=== PATIENT | male | born 1985 | race Caucasian/White ===

== ENCOUNTER 2024-03-18 17:17 | Emergency (ER) | payer OTHER, SELFPAY ==
[2024-03-18 17:30] VITALS: BP 158/116; BMI 27.3
--- NOTE | 2024-03-18 17:38 | ED.GENMED ---
History of Present Illness
General
Chief Complaint: Substance Abuse
Source: patient
Exam Limitations: none
Time Seen by Provider: 03/18/24 17:21
Nursing documentation reviewed up to this point in time: agreed with
History of Present Illness
History of Present Illness:
pt is a 38 y/o M wit hh/o depression
just was released after 302 in [place] and dad has petitioned another 302 for supposed SI
the 302 reads that the patient has said things like 'i need this to end' 'i need to go'
pt was apparently texting these things to his father
pt denies that he said these things
he relapsed using fentanyl recently after being clean for 32 months
he thinks he needs to go to rehab
he has a son and wants to be better for him
he is unclear when he last used fentanyl (intranasally)
deenies any medicla complaitns
Past History
Past History
ED Past Medical History: Psychiatric
Social History
Tobacco: Smoker
Alcohol: None
Drug: Narcotics (fentanyl)
Review of Systems
Review of Systems
Allergies reviewed?: Yes
All Other Systems: Not applicable
Phy Exam
Physical Exam
Physical Exam:
GENERAL: Alert , in no apparent distress; conversive, calm,, cooperative
EYE: pupils equal and reactive
NECK: Supple
ENT: o/p clr, mmm.
CARDIAC: Regular rate and rhythm .
LUNGS: Clear breath sounds bilaterally, no acute respiratory distress, no wheezes/rales/rhonchi
ABDOMEN: Soft, without focal tenderness, no r/g, no cvat, normal bowel sounds
NEUROLOGICAL: Alert and oriented, no focal neuro deficits
SKIN: Warm, diaphoresis forehead
MUSCULOSKELETAL: No edema, well perfused. neg malick's sign
PSYCH: Normal and appropriate interaction. no si
Course
Vital Signs
Initial and Last Documented VS:
Initial Vital Signs
Temp Pulse Resp BP Pulse Ox
97.6 F 97 20 158/116 100
03/18/24 17:30 03/18/24 17:30 03/18/24 17:30 03/18/24 17:30 03/18/24 17:30
Last Documented Vital Signs
Temp Pulse Resp BP Pulse Ox
97.6 F 94 16 143/107 97
03/18/24 17:30 03/18/24 18:46 03/18/24 18:46 03/18/24 18:46 03/18/24 18:46
MDM/Problems Addressed
Differential Diagnosis Includes:
drug abuse, addiction, mental illness, depression
MDM/Problems Addressed:
38 y/o M
depression history
uses fentanyl
relapsed recently
apparently dad filed 302 petition for SI
pt denies
crisis eval and will have psychiatrist see
pt has no complaints
he is a little sweaty
says he used a few hours ago but doesn't feel withdrwawl; upset at dad but cooperative
ambulatory steadily
seems a little tired but not slurring and answering approrpitaely
302 not upheld per psych
pending b cares consult and rehab per pt request
pt eloped prior to b cares consult.
*Critical Care Note
Total Time (30-74mins, 75-104mins- exclusive of procedures): Not Applicable
ED Attending Note
-
Portions of this chart may have been created with voice recognition software.� Occasional wrong word or��sound alike� substitutions may have occurred due to the inherent limitations of voice recognition software.
Discharge Plan
Departure
Patient Disposition: Elopement
Date of Disposition: 03/18/24
Time of Disposition: 19:30
Discharge Problem:
Opiate abuse, episodic
Prescriptions:
No Action
No Current Medications
0
Referrals:
UNKNOWN - PT NOT,INTERVIEWE [Family Provider] -
Interventions
Interventions:
*Risk Screen - Suicide Last Done: 03/18/24 17:30
*General Assessment Last Done: 03/18/24 17:30
*Neglect/Abuse Screening Last Done: 03/18/24 17:30
ED- Fall Risk Assessment Last Done: 03/18/24 17:30
*ED COVID-19 Vaccine History Last Done: 03/18/24 17:30
ED-Psychological Assessment Last Done: 03/18/24 17:30
Discharge Date and Time
Print Language: ROMANIAN
--- NOTE | 2024-03-18 18:31 | EDRN ---
Crisis approached this RN and stated that the 302 was not upheld, crisis states that the pt wants to speak to [facility], this RN called [facility] and spoke to Aston who will be coming in to see the pt, the pt was notified of this
[2024-03-18 18:46] VITALS: BP 143/107
--- NOTE | 2024-03-18 19:11 | CON.MD ---
Consultation - Medical
-
Pt presented on a 302 petitioned by his father. Basis of 302 seems to be concerns for SI, however as per 302 statement from father it does not appear that there were suicidal statements made by patient rather statements of wanting to 'get out of
here' because he 'can't take this anymore'. Patient has long history of substance abuse and it seems that this is the current point of contention. Pt was at [facility] recently for a similar 302 from dad, reportedly was released at his 303
hearing and went to [facility] for D&A treatment after this. Was discharged from [facility] for substance use on premises. Has been using since.
Pt is notably future oriented - upon entering crisis is overheard saying that he is going to dariela his father for placing a 302, is heard saying that he believes it is illegal to 302 someone for drug use. On interview he remains future oriented - has
a 16 yr old son that lives with his parents currently and pt expresses regret over his ongoing use and wants to get clean so he can futher build his relationship with his son. Denies SI/HI/AVH/delusions, says he has never been suicidal and would
never contemplate such a thing, especially given his having a son.
Does describe depressed mood relating to his substance use, but denies overt depressive disorder outside of this. Had a period of 3 yrs clean but relapsed as his partner at the time experienced a miscarriage. Abuses opiates, about 10 yrs ago used IV
but since then using intranasally. Reported that current opiate supply is mostly xylazine which he is scared of and which has made this current relapse much worse than prior ones - 'I can't keep doing this'.
Pt reported that prior to police coming to bring him to crisis he had been on the phone with [facility] setting up inpatient rehab treatment - reports that they told him they had a male bed available, which he wanted to take but then the police
came to his home. Pt reports that he had been discussing [facility] with the facility so that his treatment could be covered. Expressed frustration and worry that he may lose the bed availability because of being at the hospital now, stated that his
plan was to go straight to [facility] from here if discharged. In fact, he inquired whether we could help facilitate transportation to the facility for him. [employer] traction [employer] worker spoke to staff and they were able to set up transportation via [facility] to
[facility] for inpatient rehab placement and [facility] came to pick patient up by end of day.
302 denied as pt is quite future oriented & obtained transportation to inpatient rehab for appropriate treatment
== END 2024-03-18 19:30 | disposition left against medical advice (07) ==
LOC: EMR 17:17
PROVIDERS: EMERGENCY PHYSICIAN Emergency Medicine
DX: F11.10 Opioid abuse, uncomplicated (principal); F32.A Depression, unspecified; F17.200 Nicotine dependence, unspecified, uncomplicated
CPT/HCPCS: 99283